=== PATIENT | male | born 1955 | race Caucasian/White ===

== ENCOUNTER 2016-11-28 17:53 | Inpatient (IN) | payer MEDICAID ==
[~2016-11-28] VITALS: Ht 182.9 cm; Wt 91.7 kg
[2016-11-28 18:34] LABS: Basophils # (auto) 0 uL; Basophils % (auto) 0.3 % (0.0-2.0); Eosinophils # (auto) 0 uL; Eosinophils % (auto) 0.4 % (0.0-7.0); Hematocrit 43.4 % (41.0-53.0); Hemoglobin 14.3 g/dL (13.5-17.5); Lymphocytes # (auto) 2.1 uL; Lymphocytes % (auto) 20.8 % (10.0-50.0); Mean Corpuscular Hemoglobin 28.1 pg (28.0-32.0); Mean Corpuscular Volume 85.4 fL (80.0-100.0); Mean Platelet Volume 8.6 fL (7.4-10.4); Monocytes # (auto) 0.6 uL; Monocytes % (auto) 6.2 % (0.0-12.0); Neutrophils # (auto) 7.2 uL; Neutrophils % (auto) 72.3 % (37.0-80.0); Platelet Count (auto) 293 10^3/uL (140-450); Red Cell Distribution Width 15.2 % (11.6-16.0); White Blood Cell 9.9 10^3/uL (4.4-10.8)
[2016-11-28 19:01] LABS: Albumin 3.6 g/dL (3.4-5.0); BUN/Creatinine Ratio 24.7; Bilirubin, Total 0.3 mg/dL (0.2-1.0); Calcium 8.6 mg/dL (8.5-10.1); Magnesium 2.2 mg/dL (1.6-2.6); Potassium 3.7 mmol/L (3.5-5.1); Total Protein 7.3 g/dL (6.4-8.2)
[2016-11-28] MEDS ORDERED: NITROGLYCERIN 0.2MG/HR TOPICAL PATCH TD ONE (19:30)
[2016-11-28] MEDS ORDERED: ONDANSETRON HCL 4 MG/2 ML VIAL IV ONE (19:30)
[2016-11-28] MEDS ORDERED: SODIUM CHLORIDE 0.9% 1,000 ML IV ONE (19:30)
[2016-11-28] MEDS ORDERED: MORPHINE SULFATE 4 MG/ML SYRG IV ONE (19:30)
[2016-11-28] MEDS ORDERED: DOCUSATE SOD 100 MG CAP PO PRN (20:00)
[2016-11-28] MEDS ORDERED: MORPHINE SULF INJ 2 MG/ML SYRINGE 1ML IV PRN (20:00)
[2016-11-28] MEDS ORDERED: NITROGLYCERIN 0.4 MG SL TAB SL PRN (20:00)
[2016-11-28] MEDS ORDERED: ALUM & MAG HYDROX-SIMETH LIQ(MAALOX) 30 ML PO PRN (20:00)
[2016-11-28] MEDS ORDERED: ATORVASTATIN 20 MG TAB PO ONE (20:15)
[2016-11-28] MEDS ORDERED: OMEP20CA5 PO (20:28)
[2016-11-28 22:00] VITALS: BP 145/78
[2016-11-28] MEDS ORDERED: ENOXAPARIN SOD 100 MG/1 ML SYRINGE SC SCH (22:00)
[2016-11-28 22:25] VITALS: BP 124/62
[2016-11-28] MEDS: CARVEDILOL 3.125 MG TAB PO SCH (22:28)
[2016-11-28] MEDS: HYDROcodone-ACET 5/325MG TAB PO PRN (22:29)
[2016-11-28] MEDS: NITROGLYCERIN 2% OINT 1GM PKG TD SCH (22:29)
[2016-11-29] MEDS: MORPHINE SULF INJ 2 MG/ML SYRINGE 1ML IV PRN ×5 (04:20→22:29)
[2016-11-29] MEDS: NITROGLYCERIN 2% OINT 1GM PKG TD SCH ×3 (05:41→22:22)
[2016-11-29 05:52] LABS: Basophils # (auto) 0 uL; Basophils % (auto) 0.4 % (0.0-2.0); Eosinophils # (auto) 0.1 uL; Eosinophils % (auto) 1.3 % (0.0-7.0); Hematocrit 38.4 % (41.0-53.0); Hemoglobin 12.8 g/dL (13.5-17.5); Lymphocytes # (auto) 2.9 uL; Lymphocytes % (auto) 36.7 % (10.0-50.0); Mean Corpuscular Hemoglobin 28.4 pg (28.0-32.0); Mean Corpuscular Hgb Conc. 33.3 g/dL (32.0-36.0); Mean Corpuscular Volume 85.2 fL (80.0-100.0); Mean Platelet Volume 8.9 fL (7.4-10.4); Monocytes # (auto) 0.6 uL; Monocytes % (auto) 8.1 % (0.0-12.0); Neutrophils # (auto) 4.3 uL; Neutrophils % (auto) 53.5 % (37.0-80.0); Platelet Count (auto) 279 10^3/uL (140-450); Red Cell Distribution Width 15.8 % (11.6-16.0)
[2016-11-29 06:25] LABS: Albumin 3.1 g/dL (3.4-5.0); BUN/Creatinine Ratio 24.3; Bilirubin, Total 0.5 mg/dL (0.2-1.0); Total Protein 6.2 g/dL (6.4-8.2)
[2016-11-29] MEDS ORDERED: PNEUMOCOCCAL VACC POLYS 25 MCG/0.5 ML VIAL IM ONE (07:30)
[2016-11-29 08:00] VITALS: BP 114/71
[2016-11-29] MEDS: CARVEDILOL 3.125 MG TAB PO SCH ×2 (09:30→22:00)
[2016-11-29] MEDS: ATORVASTATIN 20 MG TAB PO SCH (09:31)
[2016-11-29] MEDS: guaiFENesin-DEXTROMETHORPHAN 5ML SYR PO PRN ×2 (09:56→18:14)
[2016-11-29] MEDS ORDERED: ASPirin 325 MG TAB PO SCH (10:00)
[2016-11-29 12:21] VITALS: BP 133/77
[2016-11-29] MEDS: HYDROcodone-ACET 5/325MG TAB PO PRN ×2 (12:55→20:27)
[2016-11-29] MEDS: PANTOPRAZOLE 40 MG TAB PO SCH ×2 (14:24→22:17)
[2016-11-29 17:00] VITALS: BP 145/77
[2016-11-29 20:00] VITALS: BP 138/74
[2016-11-29 22:00] VITALS: BP 138/74
[2016-11-30 05:14] VITALS: BP 140/77
[2016-11-30] MEDS: NITROGLYCERIN 2% OINT 1GM PKG TD SCH ×3 (06:11→22:01)
[2016-11-30] MEDS: MORPHINE SULF INJ 2 MG/ML SYRINGE 1ML IV PRN ×3 (06:14→22:56)
[2016-11-30] MEDS: ONDANSETRON HCL 4 MG/2 ML VIAL IV PRN ×3 (06:21→22:04)
[2016-11-30 08:00] VITALS: BP 131/74
[2016-11-30] MEDS: ATORVASTATIN 20 MG TAB PO SCH (10:15)
[2016-11-30] MEDS: CARVEDILOL 3.125 MG TAB PO SCH ×2 (10:15→22:03)
[2016-11-30] MEDS: PANTOPRAZOLE 40 MG TAB PO SCH ×2 (10:15→22:01)
[2016-11-30 13:00] VITALS: BP 136/77
[2016-11-30 17:00] VITALS: BP 110/74
[2016-11-30 20:00] VITALS: BP 136/85
[2016-11-30 20:22] VITALS: BP 136/85
[2016-12-01 05:15] VITALS: BP 127/79
[2016-12-01] MEDS: ONDANSETRON HCL 4 MG/2 ML VIAL IV PRN ×3 (05:43→22:00)
[2016-12-01] MEDS: MORPHINE SULF INJ 2 MG/ML SYRINGE 1ML IV PRN ×3 (05:44→22:00)
[2016-12-01] MEDS: NITROGLYCERIN 2% OINT 1GM PKG TD SCH ×3 (06:00→22:00)
[2016-12-01 06:44] LABS: INR 0.99 (0.9-1.15); Partial Thromboplastin Time 28.6 sec (22.64-33.71); Prothrombin Time 10.8 sec (9.37-12.3)
[2016-12-01 07:15] VITALS: BP 119/70
[2016-12-01] MEDS ORDERED: LIDOCAINE 2%HCL (LOCAL ANESTH.) INJ 20ML MDV ONE (07:26)
[2016-12-01] MEDS ORDERED: IOHEXOL 350 MG/ML 100ML IJ ONE ×2 (07:26→08:54)
[2016-12-01] MEDS ORDERED: ANGIOMAX 250 MG VIAL IV ONE (08:02)
[2016-12-01] MEDS ORDERED: fentaNYL CITRATE 100 MCG/2 ML VL ONE (08:02)
[2016-12-01] MEDS ORDERED: SODIUM CHL 0.9% 50 ML ONE (08:02)
[2016-12-01] MEDS ORDERED: MIDAZOLAM HCL 1MG/1ML-2 ML VIAL ONE (08:02)
[2016-12-01] MEDS ORDERED: IODIXANOL 320MG/ML 100ML BTL IV ONE (08:50)
[2016-12-01] MEDS ORDERED: PRASUGREL HCL 10 MG TAB ONE (09:16)
[2016-12-01] MEDS ORDERED: ONDANSETRON HCL 4 MG/2 ML VIAL ONE (09:45)
[2016-12-01] MEDS ORDERED: SODIUM CHLORIDE 0.9% 1,000 ML IV SCH (10:05)
[2016-12-01] MEDS ORDERED: ASPirin 81 mg TAB ONE (10:06)
[2016-12-01] MEDS ORDERED: ASPirin 325 MG TAB PO ONE (10:15)
[2016-12-01] MEDS: ATORVASTATIN 20 MG TAB PO SCH (12:41)
[2016-12-01] MEDS: PANTOPRAZOLE 40 MG TAB PO SCH ×2 (12:41→22:00)
[2016-12-01] MEDS: CARVEDILOL 3.125 MG TAB PO SCH ×2 (12:42→21:59)
[2016-12-01 13:29] VITALS: BP 130/82
[2016-12-01 17:21] VITALS: BP 105/67
[2016-12-02] VITALS (8 sets, daily range): BP systolic 104–129; BP diastolic 54–74
[2016-12-02] MEDS: NITROGLYCERIN 2% OINT 1GM PKG TD SCH ×2 (06:00→14:00)
[2016-12-02] MEDS ORDERED: ASPirin 81 mg TAB PO SCH (10:00)
[2016-12-02] MEDS ORDERED: PRASUGREL HCL 10 MG TAB PO SCH (10:00)
[2016-12-02] MEDS: PANTOPRAZOLE 40 MG TAB PO SCH (10:05)
[2016-12-02] MEDS: CARVEDILOL 3.125 MG TAB PO SCH (10:07)
[2016-12-02] MEDS: ATORVASTATIN 20 MG TAB PO SCH (10:07)
== END 2016-12-02 17:05 | disposition home or self-care (01) | DRG 175 ==
LOC: ER 17:56 → TELE 17:57 → TELE-CENTR 21:58
PROVIDERS: ADMIT Internal Medicine; ATTEND Family Medicine
PROC: 4A023N8 Measurement of Cardiac Sampling and Pressure, Bilateral, Percutaneous Approach (ICD-10-PCS; principal; 2016-12-01)
PROC: 027034Z Dilation of Coronary Artery, One Artery with Drug-eluting Intraluminal Device, Percutaneous Approach (ICD-10-PCS; 2016-12-01)
PROC: B2111ZZ Fluoroscopy of Multiple Coronary Arteries using Low Osmolar Contrast (ICD-10-PCS; 2016-12-01)
PROC: B2151ZZ Fluoroscopy of Left Heart using Low Osmolar Contrast (ICD-10-PCS; 2016-12-01)
PROC: 02703ZZ Dilation of Coronary Artery, One Artery, Percutaneous Approach (ICD-10-PCS; 2016-12-01)
DX: I25.119 Atherosclerotic heart disease of native coronary artery with unspecified angina pectoris (principal); Z86.74 Personal history of sudden cardiac arrest; I24.9 Acute ischemic heart disease, unspecified; I10 Essential (primary) hypertension; E78.00 Pure hypercholesterolemia, unspecified; E78.5 Hyperlipidemia, unspecified; J44.9 Chronic obstructive pulmonary disease, unspecified; Z87.11 Personal history of peptic ulcer disease; Z87.891 Personal history of nicotine dependence; Z98.84 Bariatric surgery status
CPT/HCPCS: 36415; 71010; 80053; 83735; 84484; 85025; 85610; 85730; 93005; 96361; 96374; 96375; 99152; 99291; C1874; J2250; J2405; Q9967

== ENCOUNTER → 2016-12-25 | Outpatient (CLI) | payer MEDICAID ==
[~2016-12-25] MED LIST: OMEP20CA74 PO
[2016-12-25 12:10] VITALS: BP 137/91
[2016-12-25 13:35] VITALS: BP 145/89
== END | disposition home or self-care (01) ==
LOC: CHF HDHVI 11:55
PROVIDERS: ATTEND Internal Medicine Cardiovascular Disease
DX: I11.0 Hypertensive heart disease with heart failure (principal); I50.9 Heart failure, unspecified
CPT/HCPCS: G0463

== ENCOUNTER → 2017-01-08 | Outpatient (CLI) | payer MEDICAID ==
[~2017-01-08] MED LIST changes: +ASPI81CH43 PO; +ATOR20TA50 PO; +CARV3.1240 PO; +CLOP75TA28 PO; +LOSA100T27 PO; +TRIA37.561 PO
[2017-01-08 09:00] VITALS: BP 123/82
[2017-01-08 10:00] VITALS: BP 126/87
[2017-01-08 13:19] LABS: INR 0.94 (0.9-1.15); Partial Thromboplastin Time 28.1 sec (22.64-33.71); Prothrombin Time 10.2 sec (9.37-12.3)
[2017-01-08 13:20] LABS: Basophils # (auto) 0 uL; Basophils % (auto) 0.4 % (0.0-2.0); CONDITION Y; Eosinophils # (auto) 0.1 uL; Eosinophils % (auto) 1.1 % (0.0-7.0); Hematocrit 48.2 % (41.0-53.0); Hemoglobin 15.7 g/dL (13.5-17.5); Lymphocytes # (auto) 2.1 uL; Lymphocytes % (auto) 18.4 % (10.0-50.0); Mean Corpuscular Hemoglobin 27.3 pg (28.0-32.0); Mean Corpuscular Hgb Conc. 32.7 g/dL (32.0-36.0); Mean Corpuscular Volume 83.4 fL (80.0-100.0); Mean Platelet Volume 9.4 fL (7.4-10.4); Monocytes # (auto) 0.8 uL; Monocytes % (auto) 6.7 % (0.0-12.0); Neutrophils # (auto) 8.4 uL; Neutrophils % (auto) 73.4 % (37.0-80.0); Platelet Count (auto) 344 10^3/uL (140-450); Red Cell Distribution Width 15.9 % (11.6-16.0); White Blood Cell 11.5 10^3/uL (4.4-10.8)
[2017-01-08 13:31] LABS: BUN/Creatinine Ratio 23.8; Potassium 4.5 mmol/L (3.5-5.1)
== END | disposition home or self-care (01) ==
LOC: Rad HDHVI 08:28
PROVIDERS: ATTEND Internal Medicine Cardiovascular Disease
DX: Z01.812 Encounter for preprocedural laboratory examination (principal); I25.10 Atherosclerotic heart disease of native coronary artery without angina pectoris; R42 Dizziness and giddiness; I10 Essential (primary) hypertension; D64.9 Anemia, unspecified; R79.1 Abnormal coagulation profile
CPT/HCPCS: 36415; 80048; 85025; 85610; 85730; 93005; 93306; G0463

== ENCOUNTER 2017-01-15 07:57 | Inpatient (IN) | payer MEDICAID ==
[~2017-01-15] VITALS: Ht 182.9 cm; Wt 93.1 kg
[2017-01-15] MEDS ORDERED: IOHEXOL 350 MG/ML 100ML IJ ONE (09:56)
[2017-01-15] MEDS ORDERED: LIDOCAINE 2%HCL (LOCAL ANESTH.) INJ 20ML MDV ONE (09:56)
[2017-01-15] MEDS ORDERED: ANGIOMAX 250 MG VIAL IV ONE (09:59)
[2017-01-15] MEDS ORDERED: EPTIFIBATIDE INJ (2MG/ML) 10ML VIAL IV ONE ×2 (09:59→12:04)
[2017-01-15] MEDS ORDERED: MIDAZOLAM HCL 1MG/1ML-2 ML VIAL ONE (09:59)
[2017-01-15] MEDS ORDERED: SODIUM CHL 0.9% 50 ML ONE (09:59)
[2017-01-15] MEDS ORDERED: fentaNYL CITRATE 100 MCG/2 ML VL ONE (09:59)
[2017-01-15] MEDS ORDERED: MORPHINE SULFATE 4 MG/ML SYRG IV PRN (12:30)
[2017-01-15] MEDS ORDERED: ZOLPIDEM TARTRATE 5 MG TAB PO PRN (12:30)
[2017-01-15] MEDS ORDERED: NITROGLYCERIN 0.4 MG SL TAB SL PRN (12:30)
[2017-01-15] MEDS ORDERED: ACETAMINOPHEN 500 MG TAB PO PRN (12:30)
[2017-01-15] MEDS ORDERED: ONDANSETRON HCL 4 MG/2 ML VIAL IV PRN (12:30)
[2017-01-15] MEDS ORDERED: SODIUM CHLORIDE 0.9% 1,000 ML IV SCH (12:30)
[2017-01-15] MEDS ORDERED: ATORVASTATIN 20 MG TAB PO ONE (13:00)
[2017-01-15] MEDS ORDERED: ASPirin 81 mg TAB PO ONE (13:00)
[2017-01-15] MEDS ORDERED: LOSARTAN POTASSIUM 50 MG TAB PO ONE (13:00)
[2017-01-15] MEDS ORDERED: TRIAMTERENE/HCTZ 37.5/25 MG CAP PO ONE (13:00)
[2017-01-15] MEDS ORDERED: CLOPIDOGREL BISULFATE 75 MG TAB PO ONE (13:00)
[2017-01-15] MEDS ORDERED: CARVEDILOL 3.125 MG TAB PO ONE (13:00)
[2017-01-15] MEDS ORDERED: PANT40TA2 PO (14:43)
[2017-01-15] MEDS ORDERED: SUCR1TAB38 OR (14:43)
[2017-01-15] MEDS: HYDROcodone-ACET 5/325MG TAB PO PRN (19:10)
[2017-01-15 20:00] VITALS: BP 120/72
[2017-01-15 22:00] VITALS: BP 120/72
[2017-01-15] MEDS: OMEPRAZOLE 20MG/10ML ORAL SUSP PO SCH (22:00)
[2017-01-16] MEDS: HYDROcodone-ACET 5/325MG TAB PO PRN ×2 (04:37→13:59)
[2017-01-16 05:00] VITALS: BP 111/64
[2017-01-16 08:00] VITALS: BP 112/70
[2017-01-16 09:00] VITALS: BP 112/70
[2017-01-16] MEDS: OMEPRAZOLE 20MG/10ML ORAL SUSP PO SCH (10:00)
[2017-01-16] MEDS ORDERED: CLOPIDOGREL BISULFATE 75 MG TAB PO SCH (10:00)
[2017-01-16] MEDS ORDERED: TRIAMTERENE/HCTZ 37.5/25 MG CAP PO SCH (10:00)
[2017-01-16] MEDS ORDERED: LOSARTAN POTASSIUM 50 MG TAB PO SCH (10:00)
[2017-01-16] MEDS ORDERED: ATORVASTATIN 20 MG TAB PO SCH ×2 (10:00→22:00)
[2017-01-16] MEDS ORDERED: ASPirin 81 mg TAB PO SCH (10:00)
[2017-01-16] MEDS ORDERED: CARVEDILOL 3.125 MG TAB PO SCH (10:00)
[2017-01-16 13:00] VITALS: BP 120/68
[2017-01-16 17:00] VITALS: BP 108/62
[2017-01-16 18:32] VITALS: BP 108/62
[2017-01-16] MEDS ORDERED: PANTOPRAZOLE 40 MG TAB PO SCH (22:00)
== END 2017-01-16 19:15 | disposition home or self-care (01) | DRG 175 ==
LOC: CATH 07:57 → TELE-WESTW 07:58
PROVIDERS: ADMIT Internal Medicine Cardiovascular Disease; ATTEND Internal Medicine Cardiovascular Disease
PROC: 027034Z Dilation of Coronary Artery, One Artery with Drug-eluting Intraluminal Device, Percutaneous Approach (ICD-10-PCS; principal; 2017-01-16)
PROC: 4A023N7 Measurement of Cardiac Sampling and Pressure, Left Heart, Percutaneous Approach (ICD-10-PCS; 2017-01-16)
PROC: B2111ZZ Fluoroscopy of Multiple Coronary Arteries using Low Osmolar Contrast (ICD-10-PCS; 2017-01-16)
DX: I25.10 Atherosclerotic heart disease of native coronary artery without angina pectoris (principal); I10 Essential (primary) hypertension
CPT/HCPCS: 87081; 92928; 93458; 99152; C1874; J2250

== ENCOUNTER → 2017-02-11 | Outpatient (CLI) | payer MEDICAID ==
[~2017-02-11] MED LIST changes: -OMEP20CA74 PO; +PANT40TA2 PO; +SUCR1TAB38 OR
[2017-02-11 15:00] VITALS: BP 121/80
[2017-02-11 15:30] VITALS: BP 118/82
[2017-02-11 16:52] LABS: Basophils # (auto) 0 uL; Basophils % (auto) 0.3 % (0.0-2.0); CONDITION Y; Eosinophils # (auto) 0.1 uL; Eosinophils % (auto) 1.1 % (0.0-7.0); Hematocrit 48.4 % (41.0-53.0); Lymphocytes # (auto) 2.3 uL; Lymphocytes % (auto) 24.6 % (10.0-50.0); Mean Corpuscular Hemoglobin 27.2 pg (28.0-32.0); Mean Corpuscular Hgb Conc. 33.1 g/dL (32.0-36.0); Mean Corpuscular Volume 82.2 fL (80.0-100.0); Mean Platelet Volume 9.4 fL (7.4-10.4); Monocytes # (auto) 0.6 uL; Monocytes % (auto) 6.9 % (0.0-12.0); Neutrophils # (auto) 6.3 uL; Neutrophils % (auto) 67.1 % (37.0-80.0); Platelet Count (auto) 301 10^3/uL (140-450); White Blood Cell 9.4 10^3/uL (4.4-10.8)
[2017-02-11 17:20] LABS: BUN/Creatinine Ratio 19.8; Calcium 9.2 mg/dL (8.5-10.1); Potassium 4.2 mmol/L (3.5-5.1)
[2017-02-11 17:23] LABS: INR 0.93 (0.9-1.15); Prothrombin Time 10.1 sec (9.37-12.3)
== END | disposition home or self-care (01) ==
LOC: CHF HDHVI 14:47
PROVIDERS: ATTEND Internal Medicine Cardiovascular Disease
DX: Z01.810 Encounter for preprocedural cardiovascular examination (principal); Z01.812 Encounter for preprocedural laboratory examination; I11.0 Hypertensive heart disease with heart failure; I50.9 Heart failure, unspecified; I25.10 Atherosclerotic heart disease of native coronary artery without angina pectoris; D64.9 Anemia, unspecified; R79.1 Abnormal coagulation profile
CPT/HCPCS: 36415; 80048; 85025; 85610; 85730; 93005; G0463

== ENCOUNTER 2023-09-02 11:30 | Emergency (ER) | payer MEDICARE, MEDICAID ==
[~2023-09-02] VITALS: Ht 185.4 cm; Wt 90.0 kg
[~2023-09-02 11:30] MED LIST changes: -LOSA100T27 PO; +LOSA100T58 PO; +RANO500T2 PO; +SUCR1TAB22 OR; -SUCR1TAB38 OR
[2023-09-02] MEDS: HYDROcodone-ACET 10/325MG TAB PO ONE (13:58)
[2023-09-02 14:26] VITALS: BP 132/85; PULSE 73; RESP 15; TEMP 97.5; O2SAT 97
[2023-09-02] MEDS ORDERED: IBUP-1455 PO (14:43)
[2023-09-02] MEDS ORDERED: ACE3T PO (14:43)
== END 2023-09-02 14:56 | disposition home or self-care (01) ==
LOC: ER 11:30
DX: M26.601 Right temporomandibular joint disorder, unspecified (principal); I10 Essential (primary) hypertension; E78.5 Hyperlipidemia, unspecified; F17.210 Nicotine dependence, cigarettes, uncomplicated; Z79.82 Long term (current) use of aspirin; Z79.899 Other long term (current) drug therapy; Z88.6 Allergy status to analgesic agent; Z88.8 Allergy status to other drugs, medicaments and biological substances; Z91.013 Allergy to seafood
CPT/HCPCS: 70110

== ENCOUNTER → 2024-04-07 | Outpatient (CLI) | payer MEDICARE, MEDICAID ==
[~2024-04-07] MED LIST changes: +ACE3T PO; +IBUP-1455 PO; +LOSA-535 PO; -LOSA100T58 PO; -SUCR1TAB22 OR; +SUCR1TAB31 OR
== END | disposition home or self-care (01) ==
LOC: Rad HDHVI 12:58
PROVIDERS: ATTEND Internal Medicine Cardiovascular Disease
DX: R00.2 Palpitations (principal)
CPT/HCPCS: 93306

== ENCOUNTER → 2024-04-29 | Outpatient (CLI) | payer MEDICARE, MEDICAID ==
[~2024-04-29] VITALS: Ht 30.5 cm; Wt 0.5 kg
[2024-04-29 14:45] VITALS: BP 215/107; PULSE 61; RESP 18
[2024-04-29] MEDS: cloNIDine HCL 0.1 MG TAB PO ONE (14:55)
[2024-04-29 15:48] VITALS: BP 168/92; PULSE 57; RESP 18; O2SAT 96
[2024-04-29] MEDS: cloNIDine HCL 0.1 MG TAB ONE (16:33)
== END | disposition home or self-care (01) ==
LOC: CHF HDHVI 14:55
PROVIDERS: ATTEND Internal Medicine Cardiovascular Disease
DX: I10 Essential (primary) hypertension (principal)
CPT/HCPCS: G0463

== ENCOUNTER → 2024-05-02 | Outpatient (CLI) | payer MEDICARE, MEDICAID ==
[~2024-05-02] VITALS: Ht 182.9 cm; Wt 96.2 kg
[~2024-05-02] MED LIST changes: +ADENOSINE 81 MG in GIVE UN-DILUTED 0 ML IV ONE; +ADENOSINE 90 MG/30 ML INJ IV ONE; +cloNIDine HCL 0.1 MG TAB ONE; +cloNIDine HCL 0.1 MG TAB PO ONE
== END | disposition home or self-care (01) ==
LOC: Rad HDHVI 09:35
PROVIDERS: ATTEND Internal Medicine Cardiovascular Disease
DX: I10 Essential (primary) hypertension (principal); I21.3 ST elevation (STEMI) myocardial infarction of unspecified site; I25.2 Old myocardial infarction; R07.89 Other chest pain; R06.02 Shortness of breath; E78.00 Pure hypercholesterolemia, unspecified; R00.2 Palpitations; I25.10 Atherosclerotic heart disease of native coronary artery without angina pectoris; E78.5 Hyperlipidemia, unspecified; Z95.5 Presence of coronary angioplasty implant and graft
CPT/HCPCS: 78452; 93005; 96374; 96375; A9500; J0153

== ENCOUNTER → 2024-05-04 | Outpatient (CLI) | payer MEDICARE, MEDICAID ==
[~2024-05-04] MED LIST changes: -ADENOSINE 81 MG in GIVE UN-DILUTED 0 ML IV ONE; -ADENOSINE 90 MG/30 ML INJ IV ONE; -cloNIDine HCL 0.1 MG TAB ONE; -cloNIDine HCL 0.1 MG TAB PO ONE
== END | disposition home or self-care (01) ==
LOC: Rad HDHVI 14:31
PROVIDERS: ATTEND Internal Medicine Cardiovascular Disease
DX: I10 Essential (primary) hypertension (principal)
CPT/HCPCS: 93880

== ENCOUNTER 2024-07-05 18:27 | Emergency (ER) | payer MEDICARE, MEDICAID ==
[~2024-07-05] VITALS: Ht 182.9 cm; Wt 77.0 kg
--- NOTE | 2024-07-05 18:41 | ED.PDOC ---
History of Present Illness HPI Comments 68-year-old male with PMHx GERD, HTN, HLD presents with a chief complaint of nasal congestion and cough x onset yesterday. Patient reports that his nose has been congested and the mucus is sliding down his throat, causing him to have "coughing fits" and then feeling like he cannot breathe. Patient denies any chest pain, SOB, headache, or abdominal pain. Time Seen by MD: 18:37 Primary Care Provider: RANDAL Reviewed Notes: Medications, Allergies Allergies: Coded Allergies: Aspirin (Verified Allergy, Severe, 09/02/23) Pentazocine (Verified Allergy, Severe, 09/02/23) Fish Allergy (Verified Allergy, Unknown, 02/13/17) Home Meds Active Scripts Acetaminophen W/ Codeine (Tylenol W/Cod #3) 1 Tab Tb, 1 TAB PO Q6HP PRN, #20 TAB Prov:GERMAN CHOUDHURY PAC 09/02/23 Ibuprofen Micronized (Ibuprofen) 800 Mg Tab, 800 MG PO Q8HP PRN, #30 TAB Prov:GERMAN CHOUDHURY PAC 09/02/23 Ranolazine (Ranexa) 500 Mg Tab, 500 MG PO BID, #90 TAB Prov:SHREYAS JHA MD 02/14/17 Sucralfate (CARAFATE) 1 Gm Tab, 1 GM OR BID, #90 TAB Prov:SHREYAS JHA MD 02/14/17 Pantoprazole Sodium Sesquihydr (Protonix) 40 Mg Tab, 40 MG PO DAILY, #90 TAB Prov:SHREYAS JHA MD 02/14/17 Losartan Potassium (Losartan Potassium) 100 Mg Tab, 1 TAB PO DAILY, #90 TAB 3 Refills Prov:SHREYAS JHA MD 02/14/17 Hydrochlorothiazide W/Triamter (Dyazide) 1 Cap Cap, 1 CAP PO DAILY, #90 CAP 3 Refills Prov:SHREYAS JHA MD 02/14/17 Aspirin (Asa) 81 Mg Ch, 81 MG PO DAILY, #90 TAB Prov:SHREYAS JHA MD 02/14/17 Carvedilol (Carvedilol) 3.125 Mg Tab, 3.125 MG PO DAILY, #90 TAB Prov:SHREYAS JHA MD 02/14/17 Atorvastatin Calcium (ATORVASTATIN CALCIUM) 20 Mg Tab, 20 MG PO DAILY, #90 TAB Prov:SHREYAS JHA MD 02/14/17 Clopidogrel Bisulfate (Plavix) 75 Mg Tab, 75 MG PO DAILY, #90 TAB Prov:SHREYAS JHA MD 02/14/17 Information Source: Patient Mode of Arrival: Ambulatory Severity: Moderate Timing: Days Duration: Since onset Prehospital treatment: None Past Medical History PAST MEDICAL HISTORY: High Lipids, HTN, Denies Surgical History: Denies all surgeries Family History Family History: Unknown Social History Smoker: Less Than 1 Pack/Day Alcohol: Denies ETOH Use Drugs: Denies Drug Use Constitutional: denies: chills, diaphoresis, fatigue, fever, malaise, sweats, weakness, others EENTM: reports: nose congestion; denies: blurred vision, double vision, ear bleeding, ear discharge, ear drainage, ear pain, ear ringing, eye pain, eye redness, hearing loss, mouth pain, mouth swelling, nasal discharge, nose bleedin g, nose pain, photophobia, tearing, throat pain, throat swelling, voice changes, others Respiratory: reports: cough; denies: hemoptysis, orthopnea, SOB at rest, shortness of breath, SOB with excertion, stridor, wheezing, others Cardiovascular: denies: chest pain, dizzy spells, diaphoresis, Dyspnea on exertion, edema, irregular heart beat, left arm pain, lightheadedness, palpitations, PND, syncope, others Gastrointestinal: denies: abdomen distended, abdominal pain, blood streaked bowels, constipated, diarrhea, dysphagia, difficulty swallowing, hematemesis, melena, nausea, poor appetite, poor fluid intake, rectal bleeding, rectal pain, vomiting, others Genitourinary: denies: burning, dysuria, flank pain, frequency, hematuria, incontinence, penile discharge, penile sore, pain, testicle pain, testicle swelling, urgency, others Neurological: denies: dizziness, fainting, headache, left sided numbness, left sided weakness, numbness, paresthesia, pre-existing deficit, right sided numbness, right sided weakness, seizure, speech problems, tingling, tremors, weakness, others Musculoskeletal: denies: back pain, gout, joint pain, joint swelling, muscle pain, muscle stiffness, neck pain, others Integumetry: denies: bruises, change in color, change in hair/nails, dryness, laceration, lesions, lumps, rash, wounds, others Allergic/Immunocompromised: denies: Difficulty Healing, Frequent Infections, Hives, Itching, others Hematologic/Lymphatic: denies: anemia, blood clots, easy bleeding, easy bruising, swollen glands, others Endocrine: denies: excessive hunger, excessive sweating, excessive thirst, excessive urination, flushing, intolerance to cold, intolerance to heat, unexplained weight gain, unexplained weight loss, others Psychiatric: denies: anxiety, bipolar disorder, depression, hopeless, panic disorder, schizophrenia, sleepless, suicidal, others All Other Systems: Reviewed and Negative Physical Exam General Appearance: No Apparent Distress, Normal HEENT: Pharynx Normal, TMs Normal, Other (NASAL CONGESTION) Neck: Full Range of Motion, Non-Tender, Normal, Normal Inspection Respiratory: Chest Non-Tender, Lungs Clear, No Accessory Muscle Use, No Respira tory Distress, Normal Breath Sounds Cardiovascular: No Edema, No JVD, No Murmur, No Gallop, Normal Peripheral Pulses, Regular Rate/Rhythm Breast Exam: Deferred Gastrointestinal: No Organomegaly, Non Tender, No Pulsatile Mass, Normal Bowel Sounds, Soft Genitalia: Deferred Pelvic: Deferred Rectal: Deferred Extremities: No calf tenderness, Normal capillary refill, Normal inspection, Normal range of motion, Non-tender, No pedal edema Musculoskeletal : Apperance: Normal Neurologic: Alert, market manager II-XII nml as Tested, No Motor Deficits, Normal Affect, Normal Mood, No Sensory Deficits Cerebellar Function: Normal Reflexes: Normal Skin: Dry, Normal Color, Warm Lymphatic: No Adenopathy Was a procedure done? Was a procedure done?: No Differential Dx Considerations may include: Viral syndrome, pneumonia X-Ray, Labs, Meds, VS Vital Signs Date Time Temp Pulse Resp B/P (MAP) Pulse Ox O2 Delivery O2 Flow Rate FiO2 07/05/24 18:45 Room Air* 0 21 07/05/24 18:33 98.6 87 18 139/74 (95) 96 Current Medications Medications (Trade) Dose Ordered Sig/Anum Route Start Time Stop Time Status Last Admin Ondansetron HCl (Zofran Po) 4 mg ONCE ONCE PO 07/05/24 18:45 07/05/24 18:46 DC 07/05/24 19:04 Famotidine (Pepcid Tablet) 20 mg ONCE ONCE PO 07/05/24 18:45 07/05/24 18:46 DC 07/05/24 19:03 Acetaminophen (Tylenol Tablet) 650 mg ONCE ONCE PO 07/05/24 18:45 07/05/24 18:46 DC 07/05/24 19:04 Time of 1ST Reevaluation: 19:07 Reevaluation 1ST: Unchanged Patient Education/Counseling: Diagnosis, Treatment, Prognosis Family Education/Counseling: No Family Present Departure 1 Departure Time of Disposition: 19:47 (Patient likely with a viral syndrome however our adult abundance of caution we will discharge patient with a few day course of azithromycin given the linear opacities in the bilateral chest x-ray.) Impression: Primary Impression: Viral syndrome Additional Impression: Cough Qualified Codes: R05.1 - Acute cough Disposition: 01 HOME / SELF CARE / HOMELESS Condition: Stable Additional Instructions: You likely have a viral illness. Out of an abundance of caution you were prescribed azithromycin. You were also prescribed cough medicine. Please take as directed. It is important to stay well rested and well hydrated. You can take Tylenol and Motrin as needed for pain and fever. For a sore throat you can drink warm tea with honey. You can take [id number] pseudoephedrine for nasal congestion. He should follow up with your regular doctor within 1 week to ensure you are doing better. If your symptoms worsen or you have any other concerns please return to the emergency room. e-Prescriptions Benzonatate (Benzonatate) 100 Mg Cap 1-2 CAP PO Q4HR PRN for 5 Days, #60 CAP Prov: MARIBETH SANTIAGO MD 07/05/24 Azithromycin (ZITHROMAX TABLET) 250 Mg Tb 250 MG PO DAILY for 4 Days, #4 TAB Prov: MARIBETH SANTIAGO MD 07/05/24 Discharged With: Self Critical Care Note Critical Care Time?: No Stability Stability form required: No I personally scribed for MARIBETH SANTIAGO MD ([email or web address]) on 07/05/24 at 18:41. Electronically submitted by Horacio Carvajal ([email or web address]). MARIBETH SANTIAGO MD Jul 05, 2024 18:41
[2024-07-05] MEDS: FAMOTIDINE 20 MG TAB PO ONE (19:03)
[2024-07-05] MEDS: ACETAMINOPHEN 325 MG TAB PO ONE (19:04)
[2024-07-05] MEDS: ONDANSETRON ODT 4 MG TAB PO ONE (19:04)
--- NOTE | 2024-07-05 19:26 | DVH ---
XY CHEST TWO VIEWS ROUTINE CLINICAL HISTORY: cough COMPARISON: None TECHNIQUE: Frontal and lateral view of the chest was obtained FINDINGS: Lines and Tubes: None Lungs: Bilateral lower lung zone and left mid lung zone linear densities. Pleura: No effusion. No pneumothorax. Cardiomediastinal contours: Unremarkable Bones: No acute osseous abnormality. IMPRESSION: Bilateral lower lung zone and left mid lung zone linear atelectasis.
[2024-07-05] MEDS ORDERED: BENZ100C97 PO (19:50)
[2024-07-05] MEDS ORDERED: AZIT-185 PO (19:50)
[2024-07-05] MEDS: DexAMETHasone SOD PHOS 10MG/1ML VIAL INJ PO ONE (20:36)
[2024-07-05] MEDS: AZITHROMYCIN 250 MG TAB PO ONE (20:36)
[2024-07-05 20:59] VITALS: BP 120/72; PULSE 84; RESP 18; O2SAT 96
== END 2024-07-05 21:32 | disposition home or self-care (01) ==
LOC: ER 18:29
DX: B34.9 Viral infection, unspecified (principal); E78.5 Hyperlipidemia, unspecified; F17.210 Nicotine dependence, cigarettes, uncomplicated; I10 Essential (primary) hypertension; K21.9 Gastro-esophageal reflux disease without esophagitis; Z79.02 Long term (current) use of antithrombotics/antiplatelets; Z79.82 Long term (current) use of aspirin; Z79.899 Other long term (current) drug therapy; Z88.6 Allergy status to analgesic agent
CPT/HCPCS: 71046; 99284; J1100; Q0162

== ENCOUNTER 2025-01-20 10:27 | Outpatient (CLI) | payer MEDICARE, MEDICAID ==
[~2025-01-20 10:27] MED LIST changes: +AZIT-185 PO; +BENZ100C97 PO
--- NOTE | 2025-01-22 15:46 | DVH ---
INDICATION: ATHRITIS PAIN EXAM DATE: 01/20/2025 10:31 AM COMPARISON: Mandibular radiograph 09/02/2023 TECHNIQUE: CT of the IAC without intravenous contrast. RADIATION DOSE: CTDIvol: 62.55 mGy, DLP: 1413.1 cm mGy*cm FINDINGS: No significant degenerative changes of the temporomandibular joint. On the open mouth view, the mandibular condyle is normally position within the mandibular fossa with normal translation over the articular tubercle on the open mouth view bilaterally. No evidence of acute traumatic fractures. Minimal mucoperiosteal thickening of the bilateral inferior frontal, maxillary and bilateral ethmoid sinuses. The sphenoid sinuses are clear. The bilateral mastoids are clear. The middle ear cavity is clear bilaterally. The ossicular chains ar e intact bilateral. The facial nerve describes a normal course bilaterally. No inner ear abnormality is noted bilaterally. The tegmen appears intact. No dehiscence of the semicircular canals. Severe degenerative changes of the dens. Foci of air posterior to the right mandibular ramus and over the medial right parotid gland which may represent foci of Air within venous structures. Bilateral lens replacement. Otherwise, orbits and globes unremarkable. The limited visualized soft tissues are otherwise unremarkable. IMPRESSION: No significant degenerative changes on CT abnormalities of the TMJ. No significant abnormalities of bilateral temporal bones. Foci of air posterior to the right mandibular ramus and over the medial right parotid gland which may represent foci of Air within venous structures. Recommend clinical correlation.
== END 2025-01-20 17:00 | disposition home or self-care (01) ==
LOC: Rad HDHVI 10:27
PROVIDERS: ATTEND Internal Medicine Cardiovascular Disease
DX: M47.812 Spondylosis without myelopathy or radiculopathy, cervical region (principal); M19.90 Unspecified osteoarthritis, unspecified site
CPT/HCPCS: 70480

== ENCOUNTER 2025-04-07 14:05 | Outpatient (CLI) | payer MEDICARE, MEDICAID | END 2025-04-07 15:00 | disposition home or self-care (01) | LOC: Rad HDHVI 14:05 | PROVIDERS: ATTEND Internal Medicine Cardiovascular Disease | DX: I77.819 Aortic ectasia, unspecified site (principal); R00.2 Palpitations; E78.5 Hyperlipidemia, unspecified | CPT/HCPCS: 93306 ==

== ENCOUNTER 2025-05-10 12:29 | Outpatient (CLI) | payer MEDICARE, MEDICAID | END 2025-05-10 17:00 | disposition home or self-care (01) | LOC: Rad HDHVI 12:29 | PROVIDERS: ATTEND Internal Medicine Cardiovascular Disease | DX: I11.0 Hypertensive heart disease with heart failure (principal); I50.33 Acute on chronic diastolic (congestive) heart failure | CPT/HCPCS: 93880 ==